=== PATIENT | male | born 1960 | race Caucasian/White ===

== ENCOUNTER → 2018-06-12 | Outpatient (CLI) | payer SELFPAY | LOC: CARD 09:51 | PROVIDERS: ATTEND Family Medicine | DX: I08.1 Rheumatic disorders of both mitral and tricuspid valves (principal); I50.9 Heart failure, unspecified | CPT/HCPCS: 93306 ==

== ENCOUNTER → 2018-07-20 | Outpatient (CLI) | payer SELFPAY ==
[~2018-07-20] MED LIST: REGADENOSON 0.4 MG/5 ML SYR (LEXISCAN) IV ONE
[2018-07-20] MEDS: CATHETER FLUSH 10 ML SYR IV PRN ×2 (07:38→09:38)
[2018-07-20 09:36] VITALS: BP 137/97
--- NOTE | 2018-07-20 12:29 | STRESS TEST ---
DATE OF SERVICE: 07/20/2018 LEXISCAN MYOVIEW STRESS TEST REPORT Baseline heart rate is 103. Baseline blood pressure is 137/97. Baseline EKG is sinus rhythm with no ischemic changes. In summary, the patient was injected with 10.0 mCi of technetium-99 Myoview and the resting images were obtained. Then, the patient received 0.4 mg of Lexiscan followed by 29.6 mCi of technetium-99 Myoview. Throughout the test, there were no EKG changes. The resting and stress images were reviewed and compared in the short axis, horizontal long axis, and vertical long axis views. Review of the images showed diaphragmatic attenuation with fixed defect involving the whole inferior wall. SSS is 7, SDS 1, TID value 0.99. On the gated images, the left ventricle appeared to be dilated with severe diffuse left ventricular hypokinesia, calculated ejection fraction 22%. CONCLUSION: 1. The patient tolerated Lexiscan well. 2. Fixed defect involving the whole inferior wall. 3. Dilated left ventricle with diffuse left ventricular hypokinesia, calculated ejection fraction 22%. Job ID: [id number] DocumentID: [id number] Dictated Date: 07/20/2018 12:18:36 Pickling Grader Date: 07/20/2018 12:28:38 Dictated By: JO ANN ADAMS MD
== END ==
LOC: CARD 07:19
PROVIDERS: ATTEND Internal Medicine Cardiovascular Disease
DX: I50.9 Heart failure, unspecified (principal)
CPT/HCPCS: 78452; 93017

== ENCOUNTER 2018-08-05 06:47 | Day surgery (SDC) | payer OTHER ==
[2018-08-05] VITALS (11 sets, daily range): BP systolic 110–137; BP diastolic 70–99
[~2018-08-05] VITALS: Ht 182.9 cm; Wt 72.6 kg
--- OUTSIDE RECORDS SUMMARY | 2018-08-05 06:52 | XMS REPORT ---
Author Author SANDY CHAVEZ Organization [facility] Address [address] [place] [address] Care Team Providers Care Concrete Grinder Operator Name Role Phone SANDY CHAVEZ Unavailable PROBLEMS Type Condition ICD9-CM Code [id number] Code Onset Dates Condition Status SNOMED Code Problem Congestive heart failure, unspecified HF chronicity, unspecified heart failure type I50.9 Active 20601857 Problem Mixed hyperlipidemia E78.2 Active 586605007 Problem Coronary artery disease involving nisqually coronary artery of nisqually heart without angina pectoris I25.10 Active 1501023313104 Problem Other emphysema J43.8 Active 20626216 Problem Essential hypertension I10 Active 88172327 ALLERGIES No Information ENCOUNTERS Encounter Location Date Diagnosis [facility] [id number] [place] [address] 30616- 3412 May, Congestive heart failure, unspecified HF chronicity, unspecified heart failure type I50.9 ; Fatigue, unspecified type R53.83 ; Mixed hyperlipidemia E78.2 and Elevated LFTs R94.5 [place] [address] [place] [address] 04458- 6493 February, Colon cancer screening Z12.11 [place] [id number] [place] [address] 65862- 4003 February, Colon cancer screening Z12.11 [place] [id number] [place] [address] 73235- 4101 February, Essential hypertension I10 ; Bilateral impacted cerumen H61.23 ; Coronary artery disease involving [place]qu[place] coronary artery of nisqually heart without angina pectoris I25.10 ; Mixed hyperlipidemia E78.2 and Screening for diabetes mellitus Z13.1 [place] [id number] [place] [address] 28341- 9362 Jul, [facility] [address] [address] 3054 Jul, [facility] [id number] [place] [address] 22191- 6272 Jul, Fatigue, unspecified type R53.83 ; Other emphysema J43.8 ; Essential hypertension I10 and Coronary artery disease involving n[place]qu[place] coronary artery of nisqually heart without angina pectoris I25.10 [facility] [id number] [place] [address] 02770- 8201 14 Jan, 2015 [facility] [id number] [place] [address] 02409- 1999 Jan, [facility] [id number] [place] [address] 20298- 4124 February, [facility] [id number] [place] [address] 71922- 6931 Dec, [facility] [id number] [place] [address] 56736- 7976 Nov, [facility] [id number] [place] [address] 12434- 3252 Sep, [facility] [id number] [place] [address] 87924- 2312 Oct, [facility] [address] [place] [address] 78083- 0383 Sep, IMMUNIZATIONS No Known Immunizations SOCIAL HISTORY Never Assessed REASON FOR VISIT lab results PLAN OF CARE VITAL SIGNS MEDICATIONS No Known Medications RESULTS No Results PROCEDURES No Known procedures INSTRUCTIONS MEDICATIONS ADMINISTERED No Known Medications MEDICAL (GENERAL) HISTORY Type Description Date Medical History emphysema Medical History htn Medical History degenerative changes to back Medical History arthritis Medical History COPD Medical History [place] - 2015 Hospitalization History COPD 2015 Hospitalization History COPD, CHF, Liver Enzymes 2018
--- OUTSIDE RECORDS SUMMARY | 2018-08-05 06:52 | XMS REPORT ---
Author Author SANDY CHAVEZ Organization [employer] Address Unknown Phone Unavailable Care Team Providers Care Optomechanical Technician Name Role Phone SANDY CHAVEZ CP Unavailable Allergies No Known Allergies Problems Problem Type Condition Code Onset Dates Condition Status Problem Essential hypertension I10 Active Problem Coronary artery disease involving [place] coronary artery of [place] heart without angina pectoris I25.10 Active Problem Other emphysema J43.8 Active Medications Medication Code System Code Instructions Start Date End Date Status Dosage Lisinopril [facility] [address]-73 10 MG Orally Aug 07, 2016 as directed Results No Known Results Summary Purpose [employer] Submission
--- OUTSIDE RECORDS SUMMARY | 2018-08-05 06:52 | XMS REPORT ---
Author Author SANDY CHAVEZ Organization [facility] Address [address] [place] [address] Care Team Providers Care Construction Technology Instructor Name Role Phone SANDY CHAVEZ Unavailable PROBLEMS Type Condition ICD9-CM Code [id number] Code Onset Dates Condition Status SNOMED Code Problem Congestive heart failure, unspecified HF chronicity, unspecified heart failure type I50.9 Active 00744038 Problem Mixed hyperlipidemia E78.2 Active 892089206 Problem Coronary artery disease involving inupiat coronary artery of inupiat heart without angina pectoris I25.10 Active 7822773452067 Problem Other emphysema J43.8 Active 26541413 Problem Essential hypertension I10 Active 14173247 ALLERGIES No Known Allergies ENCOUNTERS Encounter Location Date Diagnosis [place] [address] [place] [address] 78046- 4490 May, [place] [id number] [place] [address] 23630- 4004 May, Congestive heart failure, unspecified HF chronicity, unspecified heart failure type I50.9 ; Fatigue, unspecified type R53.83 ; Mixed hyperlipidemia E78.2 and Elevated LFTs R94.5 [place] [address] [place] [address] 36443- 7033 February, Colon cancer screening Z12.11 [place] [address] [place] [address] 21755- 8227 February, Colon cancer screening Z12.11 [place] [id number] [place] [address] 15839- 2905 February, Essential hypertension I10 ; Bilateral impacted cerumen H61.23 ; Coronary artery disease involving inupiat coronary artery of inupiat heart without angina pectoris I25.10 ; Mixed hyperlipidemia E78.2 and Screening for diabetes mellitus Z13.1 [place] [address], [place] [address] 8123 Jul, [place] [id number] [place] [address] 028637- 1445 Jul, [place] [id number] [place] [address] 05595- 2791 Jul, Fatigue, unspecified type R53.83 ; Other emphysema J43.8 ; Essential hypertension I10 and Coronary artery disease involving inupiat coronary artery of inupiat heart without angina pectoris I25.10 [place] [id number] [place] [address] 41227- 3809 14 Jan, 2015 [place] [id number] [place] [address] 80572- 8844 Jan, [place] [id number] [place] [address] 16865- 5368 February, [place] [id number] [place] [address] 53736- 3787 Dec, [place] [id number] [place] [address] 673865- 2951 Nov, [place] [id number] [place] [address] 939683- 0506 Sep, [place] [id number] [place] [address] 71208- 5026 Oct, [place] [id number] [place] [address] 19678- 9115 Sep, IMMUNIZATIONS No Known Immunizations SOCIAL HISTORY Never Assessed REASON FOR VISIT BP high - pt stopped taking 10mg Lisinopril once daily approx. 1 year ago, he states it gave him diarrhea. Pt states he drinks no more than 1 cup of water a day and consumes two liters of soda per day. Pt reports never having monitored his sodium intake. Pt has access to nebulizer and would like to be prescribed medication for regular breathing treatments. [facility]iki PLAN OF CARE Activity Details Follow Up 3 Months with Carly HTN/COPD Reason: VITAL SIGNS Height 72 in 2018-03-11 Weight 173 lbs 2018-03-11 Heart Rate 92 bpm 2018-03-11 Respiratory Rate 16 2018-03-11 BMI 23.46 kg/m2 2018-03-11 Blood pressure systolic 144 mmHg 2018-03-11 Blood pressure diastolic 100 mmHg 2018-03-11 MEDICATIONS Medication Instructions Dosage Frequency Start Date End Date Duration Status DayQuil Multi-Symptom Active Tylenol Active Ipratropium-Albuterol 0.5-2.5 (3) MG/3ML Inhalation every 6 hrs 3 ml 6h February, Active RESULTS No Results PROCEDURES Procedure Date Ordered Result Body Site COMPREHEN METABOLIC PANEL March 11, 2018 LIPID PANEL March 11, 2018 Hemoglobin Test Send Out 0 dollar March 11, 2018 VENIPUNCT, ROUTINE* March 11, 2018 MANUAL CELL COUNT, EACH March 11, 2018 MICROALBUMIN, QUANTITATIVE March 11, 2018 ASSAY OF URINE CREATININE March 11, 2018 INSTRUCTIONS MEDICATIONS ADMINISTERED No Known Medications MEDICAL (GENERAL) HISTORY Type Description Date Medical History emphysema Medical History htn Medical History degenerative changes to back Medical History arthritis Medical History COPD Medical History [place] - 2014 Hospitalization History COPD 2014 Hospitalization History COPD, CHF, Liver Enzymes 2017
--- OUTSIDE RECORDS SUMMARY | 2018-08-05 06:52 | XMS REPORT ---
Author Author SANDY CHAVEZ Organization [facility] Address [address] [place] [address] Care Team Providers Care Truckload Checker Name Role Phone SANDY CHAVEZ Unavailable PROBLEMS Type Condition ICD9-CM Code [id number] Code Onset Dates Condition Status SNOMED Code Problem Mixed hyperlipidemia E78.2 Active 523162792 Problem Other emphysema J43.8 Active 94957373 Problem Chronic systolic CHF (congestive heart failure) I50.22 Active 921437840 Problem Essential hypertension I10 Active 42293577 Problem Coronary artery disease involving [place] coronary artery of [place]kw[place] heart without angina pectoris I25.10 Active 5155562333597 ALLERGIES No Known Allergies ENCOUNTERS Encounter Location Date Diagnosis [place] [id number] [place] [address] 27014- 5253 Jul, [place] [id number] [place] [address] 52406- 3819 Jun, [place] [id number] [place] [address] 00238- 6378 Jun, [place] [id number] [place] [address] 43202- 3192 May, [place] [id number] [place] [address] 60883- 8271 May, Congestive heart failure, unspecified HF chronicity, unspecified heart failure type I50.9 ; Fatigue, unspecified type R53.83 ; Mixed hyperlipidemia E78.2 and Elevated LFTs R94.5 [place] [id number] [place] [address] 44774- 1719 February, Colon cancer screening Z12.11 [place] [address] 89366- 0403 February, Colon cancer screening Z12.11 [facility] [address], [place] [address]- 2423 16 Feb, 2018 Essential hypertension I10 ; Bilateral impacted cerumen H61.23 ; Coronary artery disease involving [place] coronary artery of [place] heart without angina pectoris I25.10 ; Mixed hyperlipidemia E78.2 and Screening for diabetes mellitus Z13.1 [place] [id number] [place] [address] 05155- 4427 Jul, [facility] [id number] [place] [address] 15328- 3680 Jul, [place] [id number] [place] [address] 71829- 9392 Jul, Fatigue, unspecified type R53.83 ; Other emphysema J43.8 ; Essential hypertension I10 and Coronary artery disease involving [place] coronary artery of [place]kw[place] heart without angina pectoris I25.10 [place] [id number] [place] [address] 11994- 9856 14 Jan, 2015 [place] [address], [place] [address]- 9576 Jan, [place] [id number] [place] [address] 15391- 8324 February, [place] [address], [place] [address]- 1221 Dec, [place] [id number] [place] [address] 07029- 2943 Nov, [facility] [address] 3805 Sep, [place] [id number] [place] [address] 676426- 6386 Oct, [facility] [address] [address]- 6447 Sep, IMMUNIZATIONS No Known Immunizations SOCIAL HISTORY Never Assessed REASON FOR VISIT Hospital f/u Jaime. , Pt has orders from Jaime for blood to be drawn and EKG.- [facility] PLAN OF CARE Activity Details Follow Up 2 Months with Carly kwong Echo/lab results Reason: VITAL SIGNS Height 72 in 2018-06-09 Weight 162.7 lbs 2018-06-09 Temperature 98 degrees Fahrenheit 2018-06-09 Heart Rate 92 bpm 2018-06-09 Respiratory Rate 20 2018-06-09 Oximetry 98 % 2018-06-09 BMI 22.06 kg/m2 2018-06-09 Blood pressure systolic 105 mmHg 2018-06-09 Blood pressure diastolic 58 mmHg 2018-06-09 MEDICATIONS Medication Instructions Dosage Frequency Start Date End Date Duration Status Potassium Chloride 10 MEQ Orally Once a day 1 tab 24h Active Ventolin HFA 108 (90 Base) MCG/ACT Inhalation every 6 hrs 2 puffs as needed 6h Active Proventil (2.5 MG/3ML) 0.083% Inhalation every 6 hrs 6h Active Lopressor 25 Orally Twice a day 12h Active Lasix 20 MG Orally Once a day 1 tablet 24h Active Ipratropium-Albuterol 0.5-2.5 (3) MG/3ML Inhalation every 6 hrs 3 ml as needed 6h May, Active RESULTS No Results PROCEDURES Procedure Date Ordered Result Body Site LIPID PANEL Jun 09, 2018 COMPLETE CBC W/AUTO DIFF WBC Jun 09, 2018 NATRIURETIC PEPTIDE Jun 09, 2018 COMPREHEN METABOLIC PANEL Jun 09, 2018 ASSAY THYROID STIM HORMONE Jun 09, 2018 ACUTE HEPATITIS PANEL Jun 09, 2018 INSTRUCTIONS MEDICATIONS ADMINISTERED No Known Medications MEDICAL (GENERAL) HISTORY Type Description Date Medical History emphysema Medical History htn Medical History degenerative changes to back Medical History arthritis Medical History COPD Medical History [place] - 2014 Hospitalization History COPD 2014 Hospitalization History COPD, CHF, Liver Enzymes 2017
--- OUTSIDE RECORDS SUMMARY | 2018-08-05 06:52 | XMS REPORT ---
Author Author SANDY CHAVEZ Organization [facility] Address [address] [place] [address] Care Team Providers Care Technical Services Rep Name Role Phone SANDY CHAVEZ Unavailable PROBLEMS Type Condition ICD9-CM Code QTD54-ZI Code Onset Dates Condition Status SNOMED Code Problem Mixed hyperlipidemia E78.2 Active 850551998 Problem Other emphysema J43.8 Active 38230980 Problem Chronic systolic CHF (congestive heart failure) I50.22 Active 056929329 Problem Essential hypertension I10 Active 45747152 Problem Coronary artery disease involving [place] coronary artery of chickahominy indian tribe heart without angina pectoris I25.10 Active 3603953428473 ALLERGIES No Information ENCOUNTERS Encounter Location Date Diagnosis [place] [id number] [place] [address] 50622- 5606 Jul, [place] [id number] [place] [address] 21434- 4050 Jun, [place] [id number] [place] [address] 39448- 0063 Jun, Congestive heart failure, unspecified HF chronicity, unspecified heart failure type I50.9 ; Essential hypertension I10 ; Dyspnea, unspecified type R06.00 and History of tobacco use Z87.891 [facility] [id number] [place] [address] 99335- 2289 Jun, [place] [id number] [place] [address] 27719- 0943 16 May, 2018 [place] [address] 64179- 7278 14 May, 2018 Congestive heart failure, unspecified HF chronicity, unspecified heart failure type I50.9 ; Fatigue, unspecified type R53.83 ; Mixed hyperlipidemia E78.2 and Elevated LFTs R94.5 [facility] [address] [place] [address] 81797- 9263 31 Feb, 2018 Colon cancer screening Z12.11 [facility] [id number] [place] [address] 49884- 8009 February, Colon cancer screening Z12.11 [facility] [id number] [place] [address] 87286- 1059 16 Feb, 2018 Essential hypertension I10 ; Bilateral impacted cerumen H61.23 ; Coronary artery disease involving [place]om[place] indian tribe coronary artery of chick[place]ominy indian tribe heart without angina pectoris I25.10 ; Mixed hyperlipidemia E78.2 and Screening for diabetes mellitus Z13.1 [place] [id number] [place] [address] 06126- 6916 Jul, [place] [id number] [place] [address] 99416- 8169 Jul, [place] [id number] [place] [address] 96483- 0682 Jul, Fatigue, unspecified type R53.83 ; Other emphysema J43.8 ; Essential hypertension I10 and Coronary artery disease involving [place] indian tribe coronary artery of chick[place]ominy indian tribe heart without angina pectoris I25.10 [place] [address] [place] [address] 05883- 9145 Jan, [place] [address] [place] [address] 71745- 9454 Jan, [facility] [id number] [place] [address] 50664- 1436 February, [facility] [id number] [place] [address] 70414- 8507 Dec, [facility] [id number] [place] [address] 71609- 9552 Nov, [facility] [id number] [place] [address] 01113- 3089 Sep, [facility] [address] [facility] [id number] [address]- 9408 Oct, [facility] [address] [facility] [id number] [place] [address]- 8707 Sep, IMMUNIZATIONS No Known Immunizations SOCIAL HISTORY Never Assessed REASON FOR VISIT Medication refill request PLAN OF CARE VITAL SIGNS MEDICATIONS Unknown Medications RESULTS No Results PROCEDURES No Known procedures INSTRUCTIONS MEDICATIONS ADMINISTERED No Known Medications MEDICAL (GENERAL) HISTORY Type Description Date Medical History emphysema Medical History htn Medical History degenerative changes to back Medical History arthritis Medical History COPD Medical History [place] - 2014 Hospitalization History COPD 2014 Hospitalization History COPD, CHF, Liver Enzymes 2018
--- OUTSIDE RECORDS SUMMARY | 2018-08-05 06:52 | XMS REPORT ---
Author Author SANDY CHAVEZ Organization [facility] Address [address] [place] [address] Care Team Providers Care Poultry Grader Name Role Phone SANDY CHAVEZ Unavailable PROBLEMS Type Condition ICD9-CM Code [id number] Code Onset Dates Condition Status SNOMED Code Problem Mixed hyperlipidemia E78.2 Active 557333250 Problem Other emphysema J43.8 Active 02435507 Problem Chronic systolic CHF (congestive heart failure) I50.22 Active 236454547 Problem Essential hypertension I10 Active 68635907 Problem Coronary artery disease involving [place] coronary artery of [place] heart without angina pectoris I25.10 Active 2761341993042 ALLERGIES No Information ENCOUNTERS Encounter Location Date Diagnosis [place] [id number] [place] [address] 79339- 7795 Jul, [place] [id number] [place] [address] 57986- 7704 Jun, [place] [id number] [place] [address] 91064- 3732 Jun, [place] [id number] [place] [address] 90570- 9385 May, [place] [address] 24139- 6637 May, Congestive heart failure, unspecified HF chronicity, unspecified heart failure type I50.9 ; Fatigue, unspecified type R53.83 ; Mixed hyperlipidemia E78.2 and Elevated LFTs R94.5 [place] [id number] [place] [address] 12781- 8601 February, Colon cancer screening Z12.11 [place] [address] 37242- 3456 February, Colon cancer screening Z12.11 [place] [address], [place] [address]- 4889 16 Feb, 2018 Essential hypertension I10 ; Bilateral impacted cerumen H61.23 ; Coronary artery disease involving [place] coronary artery of [place] heart without angina pectoris I25.10 ; Mixed hyperlipidemia E78.2 and Screening for diabetes mellitus Z13.1 [place] [id number] [place] [address] 03341- 6321 Jul, [place] [id number] [place] [address] 23078- 8694 Jul, [place] [id number] [place] [address] 33938- 5620 Jul, Fatigue, unspecified type R53.83 ; Other emphysema J43.8 ; Essential hypertension I10 and Coronary artery disease involving [place] coronary artery of [place] heart without angina pectoris I25.10 [place] [id number] [place] [address] 31560- 1004 Jan, [place] [id number] [address]- 9616 Jan, [place] [id number] [place] [address] 43036- 6097 February, [place] [id number] [address]- 3038 Dec, [place] [id number] [place] [address] 95525- 5685 Nov, [place] [address] [place] [address]- 0484 Sep, [place] [id number] [place] [address] 51366- 1898 Oct, [place] [address] [place] [address]- 2462 Sep, IMMUNIZATIONS No Known Immunizations SOCIAL HISTORY Never Assessed REASON FOR VISIT Requests return call PLAN OF CARE VITAL SIGNS MEDICATIONS Unknown Medications RESULTS No Results PROCEDURES No Known procedures INSTRUCTIONS MEDICATIONS ADMINISTERED No Known Medications MEDICAL (GENERAL) HISTORY Type Description Date Medical History emphysema Medical History htn Medical History degenerative changes to back Medical History arthritis Medical History COPD Medical History [place] - 2014 Hospitalization History COPD 2014 Hospitalization History COPD, CHF, Liver Enzymes 2018
--- OUTSIDE RECORDS SUMMARY | 2018-08-05 06:52 | XMS REPORT ---
Author Author SANDY CHAVEZ Organization [facility] Address [address] [place] [address] Care Team Providers Care Senior Mechanical Estimator Name Role Phone SANDY CHAVEZ Unavailable PROBLEMS Type Condition ICD9-CM Code [id number] Code Onset Dates Condition Status SNOMED Code Problem Congestive heart failure, unspecified HF chronicity, unspecified heart failure type I50.9 Active 25975466 Problem Mixed hyperlipidemia E78.2 Active 585254600 Problem Coronary artery disease involving anvik coronary artery of anvik heart without angina pectoris I25.10 Active 4265419636255 Problem Other emphysema J43.8 Active 73930801 Problem Essential hypertension I10 Active 65001801 ALLERGIES No Information ENCOUNTERS Encounter Location Date Diagnosis [place] [id number] [place] [address] 56168- 8655 May, [place] [address] [place] [id number] [place] [address] 58064- 1163 May, Congestive heart failure, unspecified HF chronicity, unspecified heart failure type I50.9 ; Fatigue, unspecified type R53.83 ; Mixed hyperlipidemia E78.2 and Elevated LFTs R94.5 [place] [address] [id number] [place] [address] 65589- 4956 February, Colon cancer screening Z12.11 [place] [address] [id number] [place] [address] 60125- 7545 February, Colon cancer screening Z12.11 [place] [address] [id number] [place] [address] 12480- 3267 February, Essential hypertension I10 ; Bilateral impacted cerumen H61.23 ; Coronary artery disease involving anvik coronary artery of anvik heart without angina pectoris I25.10 ; Mixed hyperlipidemia E78.2 and Screening for diabetes mellitus Z13.1 [place] [address] [address] Jul, [place] [address] [place] [id number] [place] [address] 60115- 6535 Jul, [facility] [address] [address] [id number] [place] [address] 69518- 0704 11 Jul, 2016 Fatigue, unspecified type R53.83 ; Other emphysema J43.8 ; Essential hypertension I10 and Coronary artery disease involving anvik coronary artery of anvik heart without angina pectoris I25.10 [place] [address] [id number] [place] [address] 93827- 0059 14 Jan, 2015 [place] [address] [id number] [place] [address] 47614- 0232 Jan, [place] [address] [place] [id number] [place] [address] 89476- 4597 February, [place] [address] [address] [id number] [place] [address] 57026- 4077 Dec, [place] [address] [id number] [place] [address] 80194- 4249 Nov, [place] [address] [place] [id number] [place] [address] 42572- 3988 Sep, [place] [address] [address] 9212 Oct, [place] [address] [place] [id number] [place] [address] 80176- 0436 Sep, IMMUNIZATIONS No Known Immunizations SOCIAL HISTORY Never Assessed REASON FOR VISIT Lab (walk-in)--[facility] PLAN OF CARE VITAL SIGNS MEDICATIONS Unknown Medications RESULTS Name Result Date Reference Range HEMOCCULT (IN HOUSE) 2018-03-26 RESULTS Negative Control + Lot # [id number] Exp date 01/2019 HEMOCCULT (IN HOUSE)-Additional* 2018-03-26 RESULTS Negative Control + Lot # [id number] Exp Date 01/2019 PROCEDURES Procedure Date Ordered Result Body Site TEST FOR BLOOD, FECES March 26, 2018 INSTRUCTIONS MEDICATIONS ADMINISTERED No Known Medications MEDICAL (GENERAL) HISTORY Type Description Date Medical History emphysema Medical History htn Medical History degenerative changes to back Medical History arthritis Medical History COPD Medical History [place] - 2014 Hospitalization History COPD 2014 Hospitalization History COPD, CHF, Liver Enzymes 2018
--- OUTSIDE RECORDS SUMMARY | 2018-08-05 06:52 | XMS REPORT ---
Author Author SANDY CHAVEZ Organization [facility] Address [address] [place] [address] Care Team Providers Care Capsule Inspector Name Role Phone SANDY CHAVEZ Unavailable PROBLEMS Type Condition ICD9-CM Code [id number] Code Onset Dates Condition Status SNOMED Code Problem Mixed hyperlipidemia E78.2 Active 218376476 Problem Other emphysema J43.8 Active 91431064 Problem Chronic systolic CHF (congestive heart failure) I50.22 Active 899890978 Problem Essential hypertension I10 Active 79652656 Problem Coronary artery disease involving hop[place] coronary artery of hop[place] heart without angina pectoris I25.10 Active [id number] ALLERGIES No Information ENCOUNTERS Encounter Location Date Diagnosis [place] [address] [place] [id number] [place] [address] 15280- 0891 Jul, [place] [address] [place] [id number] [place] [address] 58183- 8910 Jun, [place] [address] [place] [id number] [place] [address] 02304- 8128 Jun, Congestive heart failure, unspecified HF chronicity, unspecified heart failure type I50.9 ; Essential hypertension I10 ; Dyspnea, unspecified type R06.00 and History of tobacco use Z87.891 [facility] [address] [address] [id number] [place] [address] 58455- 7012 Jun, [place] [address] [place] [id number] [place] [address] 45075- 0741 16 May, 2018 [place] [address] 8[address]64- 0708 14 May, 2018 Congestive heart failure, unspecified HF chronicity, unspecified heart failure type I50.9 ; Fatigue, unspecified type R53.83 ; Mixed hyperlipidemia E78.2 and Elevated LFTs R94.5 [facility] [address] [place] [address] 26904- 8959 31 Feb, 2018 Colon cancer screening Z12.11 [facility] [address] [place] [id number] [place] [address] 85324- 2188 February, Colon cancer screening Z12.11 [facility] [address] [place] [id number] [place] [address] 33738- 2507 16 Feb, 2018 Essential hypertension I10 ; Bilateral impacted cerumen H61.23 ; Coronary artery disease involving [place] coronary artery of hop[place] heart without angina pectoris I25.10 ; Mixed hyperlipidemia E78.2 and Screening for diabetes mellitus Z13.1 [place] [address] [id number] [place] [address] 76909- 6613 Jul, [place] [address] [place] [id number] [place] [address] 40124- 0101 Jul, [place] [address] [place] [id number] [place] [address] 57927- 5994 Jul, Fatigue, unspecified type R53.83 ; Other emphysema J43.8 ; Essential hypertension I10 and Coronary artery disease involving [place] coronary artery of hop[place] heart without angina pectoris I25.10 [place] [address] [place] [address] 77964- 3654 Jan, [place] [address] [place] [address] 11829- 8433 Jan, [facility] [address] [place] [id number] [place] [address] 72079- 9476 February, [facility] [address] [place] [id number] [place] [address] 03788- 1937 Dec, [facility] [address] [place] [address] [id number] [place] [address] 18659- 1596 Nov, [facility] [address] [address] [id number] [place] [address] 56666- 4544 Sep, [facility] [address] [facility] [id number] [place] [address] 4020 Oct, [facility] [address] [facility] [id number] [place] [address] 6[address] Sep, IMMUNIZATIONS No Known Immunizations SOCIAL HISTORY Never Assessed REASON FOR VISIT Repository Medication PLAN OF CARE VITAL SIGNS MEDICATIONS Medication Instructions Dosage Frequency Start Date End Date Duration Status Lisinopril 10 mg Orally Once a day 2 tablets 24h Jun, 90 days Active Lasix 20 mg Orally Once a day 1 tablet 24h 30 days Active Potassium Chloride 10 meq Orally Once a day 1 tab 24h 90 days Active RESULTS No Results PROCEDURES No Known procedures INSTRUCTIONS MEDICATIONS ADMINISTERED No Known Medications MEDICAL (GENERAL) HISTORY Type Description Date Medical History emphysema Medical History htn Medical History degenerative changes to back Medical History arthritis Medical History COPD Medical History [place] - 2014 Hospitalization History COPD 2014 Hospitalization History COPD, CHF, Liver Enzymes 2018
--- OUTSIDE RECORDS SUMMARY | 2018-08-05 06:53 | XMS REPORT ---
Author Author SANDY CHAVEZ Organization [employer] Address Unknown Phone Unavailable Care Team Providers Care Auto Appraiser Name Role Phone SANDY CHAVEZ CP Unavailable Allergies No Known Allergies Problems Problem Type Condition Code Onset Dates Condition Status Problem Essential hypertension I10 Active Problem Coronary artery disease involving t[place] coronary artery of tling[place] & [place] heart without angina pectoris I25.10 Active Problem Other emphysema J43.8 Active Medications No Known Medications Results No Known Results Summary Purpose [employer] Submission
--- OUTSIDE RECORDS SUMMARY | 2018-08-05 06:53 | XMS REPORT ---
Author Author SANDY CHAVEZ Organization [employer] Address Unknown Phone Unavailable Care Team Providers Care International Exchange Coordinator Name Role Phone SANDY CHAVEZ CP Unavailable Allergies, Adverse Reactions, Alerts Substance Reaction Event Type N.K.D.A. Info Not Available Non Drug Allergy Problems Problem Type Condition Code Onset Dates Condition Status Problem Essential hypertension I10 Active Problem Coronary artery disease involving [place] coronary artery of chick[place]om[place]ian [place] heart without angina pectoris I25.10 Active Problem Other emphysema J43.8 Active Assessment Essential hypertension I10 Active Assessment Coronary artery disease involving [place] coronary artery of chick[place]om[place] tribe heart without angina pectoris I25.10 Active Assessment Fatigue, unspecified type R53.83 Active Assessment Other emphysema J43.8 Active Medications No Known Medications Procedures Procedure Coding System Code Date Office Visit, New Pt., Level 3 CPT-4 79720 Aug 06, 2016 Vital Signs Date/Time: Aug 06, 2016 Cardiac Monitoring Heart Rate 96 bpm Weight 161 lbs Height 72 in BMI 21.83 Index Blood Pressure Diastolic 90 mmHg Blood Pressure Systolic 120 mmHg Results No Known Results Summary Purpose [employer] Submission
[2018-08-05] MEDS ORDERED: NS IV 1000 ML 1,000 ML ONE (07:22)
[2018-08-05] MEDS ORDERED: NS IV 1000 ML 1,000 ML IV SCH ×2 (07:31→09:37)
[2018-08-05 07:50] LABS: HEMOGLOBIN 12.8 G/DL (13.3-17.7); MEAN PLATELET VOLUME 10.1 FL (7.4-10.4); RED BLOOD COUNT 5.04 10^6/uL (4.35-5.85); RED CELL DISTRIBUTION WIDTH 18.7 % (10.0-14.5); WHITE BLOOD COUNT 10.7 10^3/uL (4.3-11.0)
[2018-08-05] MEDS ORDERED: LIDOCAINE 1% INJ 20 ML 20 ML VIAL ONE (08:01)
[2018-08-05] MEDS ORDERED: HEParin (CATH LAB) 2,000 ML IV ONE (08:01)
--- NOTE | 2018-08-05 08:05 | Diagnostic Imaging Report ---
INDICATION: CHF and hypertension Frontal chest obtained at 7:49 a.m. Heart is borderline enlarged. Mediastinal silhouette is unremarkable. The lungs are clear. There is no pneumothorax or pleural fluid. IMPRESSION: Mild cardiomegaly with no acute process visualized in the chest. There is no sign of edema or infiltrate or pleural fluid. Dictated by: Dictated on workstation # [id number]
[2018-08-05 08:09] LABS: ALBUMIN 4.2 GM/DL (3.2-4.5); BILIRUBIN,TOTAL 0.4 MG/DL (0.1-1.0); CALCIUM 9.4 MG/DL (8.5-10.1); CREATININE SERUM 1.24 MG/DL (0.60-1.30); POTASSIUM 4.4 MMOL/L (3.6-5.0); TOTAL PROTEIN 7.6 GM/DL (6.4-8.2)
[2018-08-05] MEDS ORDERED: POTA10CA43 PO (08:14)
[2018-08-05] MEDS ORDERED: ALBU2.5V4 IH (08:14)
[2018-08-05] MEDS ORDERED: METO-387 PO (08:14)
[2018-08-05] MEDS ORDERED: FURO-125 PO (08:14)
[2018-08-05] MEDS ORDERED: LOSA100T8 PO (08:14)
[2018-08-05 08:20] LABS: INR 0.9 (0.8-1.4); PROTHROMBIN TIME PATIENT 12.5 SEC (12.2-14.7)
[2018-08-05] MEDS ORDERED: MIDAZOLAM 5 MG/5 ML (VERSED) VIAL ONE (08:38)
[2018-08-05] MEDS ORDERED: fentaNYL INJECTION 100 MCG/2 ML AMP ONE (08:38)
[2018-08-05] MEDS ORDERED: HEParin 1000 UNIT/ML (10ML VIAL) FOR BOLUS ONE (08:38)
--- NOTE | 2018-08-05 09:37 | Cardiac Procedure Note-CS/ASA ---
Pre-Procedure Note Pre-Op Procedure Note H&P Reviewed The H&P was reviewed, patient examined and no changes noted. Date H&P Reviewed: Aug 05, 2018 Time H&P Reviewed: 09:00 Conscious Sedation Pre-Proced Time 09:00 ASA Score 3 For ASA 3 and 4: Consider anesthesia and medical clearance. Also, for patients with a history of failed moderate sedation consider anesthesia. Airway Lungs Heart ASA score ASA 1: a normal healthy patient ASA 2: a patient with a mild systemic disease (mid diabetes, controlled hypertension, obesity x ASA 3: a patient with a severe systemic disease that limits activity (angina , COPD, prior Myocardial infarction) ASA 4: a patient with an incapacitating disease that is a constant threat to life (CHF, renal failure) ASA 5: a moribund patient not expected to survive 24 hrs. (ruptured aneurysm) ASA 6: a declared brain patient whose organs are being harvested. For emergent operations, add the letter E after the classification Mallampati Classification Grade 3 Sedation Plan Analgesia, Amnesia, Plan communicated to team members, Discussed options with patient/fam, Discussed risks with patient/fam The patient is an appropriate candidate to undergo the planned procedure, sedation, and anesthesia. The patient immediately re-assessed prior to indication. JO ANN ADAMS MD Aug 05, 2018 09:37
[2018-08-05] MEDS ORDERED: PATIENT MAY USE OWN MEDS, ALL PO SCH (09:45)
--- NOTE | 2018-08-05 09:46 | Cardiac Cath Report ---
Cardiac Cath Report Physician (s)/Supervisor Paint (s) Physician JO ANN ADAMS MD Pre-Procedure Diagnosis Pre-Procedure Diagnosis: coronary artery disease, congestive heart failure Post-Procedure Note Procedure Start Date: Aug 05, 2018 Name of Procedure: left heart catheterization Left ventriculogram Aortic arch angiogram Findings/Procedure Note PROCEDURE NOTE: After explaining the procedure to the patient, all pros and cons were explained , all questions were answered. The patient signed the consent and then he was placed on the cardiac catheterization laboratory. Groin was prepped SL fashion local anesthesia was used. Sheath placed in the right femoral artery. Barbara right and left catheter were used to access the coronary system. Pigtail was used to access the left ventricular cavity. Left ventriculogram was done Aortic arch angiogram was done At the end of the procedure the sheath was removed. Closure device was used FINDINGS: Hemodynamics LV 110/13, end-diastolic pressure of 13 Aorta 101/16 mean of 76 ANATOMY: Left Main has 60-70 percent distal stenosis Left Anterior Descending had 2 segment of moderate to severe stenosis at the midportion Left Circumflex has 2 segment of severe stenosis at the proximal and midportion Right Coronory Artery is totally occluded proximally getting filled by collaterals from the left side LV Gram is dilated with diffuse left ventricular hypokinesia estimated ejection fraction 20 percent Aorta evaluation showed normal aortic arch, no dissection or aneurysm, hypertensive changes, origin of the great neck vessels appeared normal CONCLUSION: 1. Severe multivessel coronary artery disease including severe distal left main , proximal and mid circumflex, mid LAD and total occlusion of the right coronary artery 2. Severe ischemic cardiomyopathy with ejection fraction 20 percent 3. Normal aortic arch and great neck vessels DISCUSSION AND RECOMMENDATION: Refer for CABG evaluation Estimated blood loss (mL): 10 ml Contrast Amount: 79 ml Total Radiation Dose: 410 mGy Post-Procedure Diagnosis Post-operative diagnosis: coronary artery disease Congestive heart failure, chronic left ventricular systolic dysfunction, ischemic cardiomyopathy Hypertension Hyperlipidemia JO ANN ADAMS MD Aug 05, 2018 09:46
[2018-08-05] MEDS ORDERED: ASPI-983 PO (10:01)
[2018-08-05] MEDS ORDERED: ATOR10TA PO (10:01)
--- NOTE | 2018-08-05 10:02 | Discharge Inst-Post CATH ---
Discharge Inst-CATH Post Cardiac Cath D/C Inst Follow Up/Plan Appointment with Dr. Gold Mccloud's office Appointment with Dr. Olvera's office in 2-4 weeks CARDIAC CATH DISCHARGE INSTRUCTIONS *Hold Metformin for 48 hours post heart cath. ACTIVITY * Go Home directly and rest. * Limit activity of the leg (or wrist if it was used) for 7 days including aerobics, swimming, jogging, bicycling, etc. * Restrict stair-climbing for 7 days if possible, if not, climb up with your non -cath leg, then bring together on the same step. * Avoid lifting, pushing, pulling or excessive movement of the affected extremity for 7 days. * Customary sexual activity may be resumed after 2 days-use caution not to use a position that strains or causes pain to the affected extremity. * No driving for 24 hours. * NO SMOKING. * Avoid straining for bowel movements for 7 days. * Gentle walking on level ground is allowed. * Returning to work will depend on the type of procedure and the results. Your doctor will discuss this with you. CALL YOUR DOCTOR FOR ANY OF THE FOLLOWING: *If bleeding from the puncture site occurs- Apply gentle pressure to site with clean cloth and call your doctor or EMS. * If a knot or lump forms under the skin, increases in size, or causes pain. * If bruising appears to be worsening or moving further down your leg instead of disappearing. * Temperature above 101 F. CARE OF YOUR GROIN INCISION; * Bruising or purple discoloration of the skin near the puncture site is common. * You may shower only, no bathtub bathing for 5 days. Be careful to avoid slipping as your leg may feel stiff. * If a closure device was used on your femoral artery, please see the attached guide regarding care of the device and your leg. * Leave the dressing on, until removed by office staff. CARE OF YOUR WRIST INCISION; * Bruising or purple discoloration of the skin near the puncture site is common. * You may shower. * DO NOT submerge wrist. * Leave dressing on, until removed by office staff.. JO ANN OLVERA MD Aug 05, 2018 10:02
== END 2018-08-05 14:45 | disposition home or self-care (01) ==
LOC: CATH 06:47 → SDC 10:04 → CATH 14:45
PROVIDERS: ATTEND Internal Medicine Cardiovascular Disease
DX: I25.10 Atherosclerotic heart disease of native coronary artery without angina pectoris (principal); I11.0 Hypertensive heart disease with heart failure; I50.21 Acute systolic (congestive) heart failure; I25.5 Ischemic cardiomyopathy; E78.5 Hyperlipidemia, unspecified; Z87.891 Personal history of nicotine dependence; Z79.899 Other long term (current) drug therapy
CPT/HCPCS: 36221; 36415; 71045; 80053; 80061; 85027; 85610; 85730; 87081; 93458

== ENCOUNTER 2018-12-01 22:09 | Emergency (ER) | payer MEDICAID ==
[~2018-12-01] VITALS: Ht 182.9 cm; Wt 77.1 kg
[~2018-12-01 22:09] MED LIST changes: +ALBU2.5V4 IH; +ASPI-983 PO; +ATOR10TA PO; +FURO-125 PO; +LOSA100T57 PO; +METO-387 PO; +POTA10CA43 PO; -REGADENOSON 0.4 MG/5 ML SYR (LEXISCAN) IV ONE
--- OUTSIDE RECORDS SUMMARY | 2018-12-01 22:13 | XMS REPORT ---
Author Author SANDY CHAVEZ Organization [facility] Address [address] [place] [address] Care Team Providers Care Client Experience Specialist Name Role Phone SANDY CHAVEZ Unavailable PROBLEMS Type Condition ICD9-CM Code ARY76-AL Code Onset Dates Condition Status SNOMED Code Problem Coronary artery disease of [place] artery of [place] heart with stable angina pectoris I25.118 Active 0720922735438 Problem Mixed hyperlipidemia E78.2 Active 683061543 Problem Coronary artery disease involving [place] coronary artery of [place] heart without angina pectoris I25.10 Active 6133302613309 Problem Chronic systolic CHF (congestive heart failure) I50.22 Active 191270323 Problem Other emphysema J43.8 Active 53893601 Problem Essential hypertension I10 Active 39018347 ALLERGIES No Known Allergies ENCOUNTERS Encounter Location Date Diagnosis [facility] [address] [place] [id number] [place] [address] 85243- 8687 Jul, Chronic systolic CHF (congestive heart failure) I50.22 ; Coronary artery disease of [place] artery of [place] heart with stable angina pectoris I25.118 ; Essential hypertension I10 ; Other emphysema J43.8 ; Trapezius muscle spasm M62.838 and Encounter for immunization Z23 [facility] [address] [place] [address] 74072- 5406 Jun, [facility] [address] [place] [address] [id number] [place] [address] 94763- 6400 Jun, Congestive heart failure, unspecified HF chronicity, unspecified heart failure type I50.9 ; Essential hypertension I10 ; Dyspnea, unspecified type R06.00 and History of tobacco use Z87.891 [place] [address] [place] [id number] [place] [address] 68803- 4442 Jun, [place] [address] [place] [id number] [place] [address] 13966- 1816 May, [place] [address], [place] [address]- 8673 May, Congestive heart failure, unspecified HF chronicity, unspecified heart failure type I50.9 ; Fatigue, unspecified type R53.83 ; Mixed hyperlipidemia E78.2 and Elevated LFTs R94.5 [place] [address] [place] [address] [id number] [place] [address] 97822- 1672 February, Colon cancer screening Z12.11 [place] [address] [place] [address] 19061- 8507 February, Colon cancer screening Z12.11 [place] [address] [place] [address] [id number] [place] [address] 41654- 9777 February, Essential hypertension I10 ; Bilateral impacted cerumen H61.23 ; Coronary artery disease involving [place] coronary artery of [place] heart without angina pectoris I25.10 ; Mixed hyperlipidemia E78.2 and Screening for diabetes mellitus Z13.1 [place] [address] [place] [address] 11458- 5465 Jul, [place] [address] [place] [address] [id number] [place] [address] 66151- 4101 Jul, [place] [address] [place] [address] 52542- 2173 Jul, Fatigue, unspecified type R53.83 ; Other emphysema J43.8 ; Essential hypertension I10 and Coronary artery disease involving [place] coronary artery of [place] heart without angina pectoris I25.10 [place] [address], [place] [address]- 8597 Jan, [place] [address] [place] [id number] [place] [address] 88072- 8606 Jan, [place] [address], [place] [address]- 9074 February, [place] [address] [place] [id number] [place] [address] 10787- 7506 Dec, [facility] [address] [facility] [id number] [address]- 8096 Nov, [facility] [address] [facility] [id number] [address] 2546 Sep, [facility] [address] [facility] [id number] [address]- 0396 Oct, [facility] [address] [facility] [id number] [address]- [address] Sep, IMMUNIZATIONS Vaccine Route Administration Date Status FLULAVAL QUAD 0.5ML (6 MO & UP) 2017 IM Intramuscular Aug 19, 2018 Administered SOCIAL HISTORY Never Assessed REASON FOR VISIT Blood Pressure fu -- jazmyne chowdhury PLAN OF CARE Activity Details Follow Up Will follow up after hospitalization Reason: VITAL SIGNS Height 72 in 2018-08-19 Weight 168.0 lbs 2018-08-19 Temperature 97.9 degrees Fahrenheit 2018-08-19 Heart Rate 80 bpm 2018-08-19 Respiratory Rate 22 2018-08-19 BMI 22.78 kg/m2 2018-08-19 Blood pressure systolic 136 mmHg 2018-08-19 Blood pressure diastolic 78 mmHg 2018-08-19 MEDICATIONS Medication Instructions Dosage Frequency Start Date End Date Duration Status Ipratropium-Albuterol 0.5-2.5 (3) MG/3ML Inhalation every 6 hrs 3 ml as needed 6h 14 May, 2018 Active ProAir HFA 108 (90 Base) MCG/ACT Inhalation every 6 hrs 2 puffs as needed 6h Jul, Active Albuterol Sulfate (2.5 MG/3ML) 0.083% Inhalation every 6 hours 3 ml as needed 6h 24 Jul, 2018 Active Lasix 20 mg Orally Once a day 1 tablet 24h 90 days Active Potassium Chloride 10 meq Orally Once a day 1 tab 24h 90 days Active Ventolin HFA 108 (90 Base) MCG/ACT Inhalation every 6 hrs 2 puffs as needed 6h Active Lopressor 25 Orally Twice a day 12h Not-Taking Lisinopril 10 mg Orally Once a day 2 tablets 24h 12 Jun, 2018 90 days Active RESULTS No Results PROCEDURES Procedure Date Ordered Result Body Site FLULAVAL QUAD 0.5ML (6 MO AND UP) 2017Aug 19, 2018 SINGLE IMMUNIZATION ADMIN Aug 19, 2018 INSTRUCTIONS MEDICATIONS ADMINISTERED No Known Medications MEDICAL (GENERAL) HISTORY Type Description Date Medical History emphysema Medical History htn Medical History degenerative changes to back Medical History arthritis Medical History COPD Medical History [place] - 2015 Surgical History No know Surgical history Hospitalization History COPD 2014 Hospitalization History COPD, CHF, Liver Enzymes 2018
--- OUTSIDE RECORDS SUMMARY | 2018-12-01 22:13 | XMS REPORT ---
Author Author SANDY CHAVEZ Organization [facility] Address [address] [place] [address] Care Team Providers Care Weather Strip Installer Name Role Phone SANDY CHAVEZ Unavailable PROBLEMS Type Condition ICD9-CM Code [id number] Code Onset Dates Condition Status SNOMED Code Problem Coronary artery disease of [place] artery of [place] heart with stable angina pectoris I25.118 Active 6970686762053 Problem Mixed hyperlipidemia E78.2 Active 177493650 Problem Coronary artery disease involving [place] coronary artery of [place] heart without angina pectoris I25.10 Active 3271826522419 Problem Chronic systolic CHF (congestive heart failure) I50.22 Active 644731987 Problem Other emphysema J43.8 Active 96986700 Problem Essential hypertension I10 Active 12535237 ALLERGIES No Information ENCOUNTERS Encounter Location Date Diagnosis [facility] [address] [address] Sep, [facility] [address] [address] Aug, Chronic systolic CHF (congestive heart failure) I50.22 [facility] [address] [place] [id number] [place] [address] Jul, Chronic systolic CHF (congestive heart failure) I50.22 ; Coronary artery disease of [place] artery of [place] heart with stable angina pectoris I25.118 ; Essential hypertension I10 ; Other emphysema J43.8 ; Trapezius muscle spasm M62.838 and Encounter for immunization Z23 [facility] [address] [address] Jun, [place] [address] [address] Jun, Congestive heart failure, unspecified HF chronicity, unspecified heart failure type I50.9 ; Essential hypertension I10 ; Dyspnea, unspecified type R06.00 and History of tobacco use Z87.891 [place] [address] [place] [address] Jun, [place] [address] [address] May, [place] [address] [place] [id number] [place] [address] May, Congestive heart failure, unspecified HF chronicity, unspecified heart failure type I50.9 ; Fatigue, unspecified type R53.83 ; Mixed hyperlipidemia E78.2 and Elevated LFTs R94.5 [place] [address] [place] [id number] [place] [address] 31 Feb, 2018 Colon cancer screening Z12.11 [place] [address] [place] [id number] [place] [address] 18 Feb, 2018 Colon cancer screening Z12.11 [place] [address] [place] [id number] [place] [address] 16 Feb, 2018 Essential hypertension I10 ; Bilateral impacted cerumen H61.23 ; Coronary artery disease involving [place] coronary artery of [place] heart without angina pectoris I25.10 ; Mixed hyperlipidemia E78.2 and Screening for diabetes mellitus Z13.1 [place] [address] [address] Jul, [place] [address] [place] [id number] [place] [address] Jul, [place] [address] [place] [address] Jul, Fatigue, unspecified type R53.83 ; Other emphysema J43.8 ; Essential hypertension I10 and Coronary artery disease involving [place] coronary artery of [place] heart without angina pectoris I25.10 [place] [address] [place] [address] Jan, [place] [address] [place] [id number] [address] Jan, [facility] [address] [address] February, [facility] [address] [address] Dec, [facility] [address] [address] Nov, [facility] [address] [address] Sep, [facility] [address] [address] Oct, [facility] [address] [address] Sep, IMMUNIZATIONS No Known Immunizations SOCIAL HISTORY Never Assessed REASON FOR VISIT referral PLAN OF CARE VITAL SIGNS MEDICATIONS Unknown Medications RESULTS No Results PROCEDURES No Known procedures INSTRUCTIONS MEDICATIONS ADMINISTERED No Known Medications MEDICAL (GENERAL) HISTORY Type Description Date Medical History emphysema Medical History htn Medical History degenerative changes to back Medical History arthritis Medical History COPD Medical History [place] - 2014 Surgical History No know Surgical history Hospitalization History COPD 2014 Hospitalization History COPD, CHF, Liver Enzymes 2018
--- OUTSIDE RECORDS SUMMARY | 2018-12-01 22:13 | XMS REPORT ---
Author Author JO ANN ADAMS Organization [facility] Address [address] [place] [address] Care Team Providers Care Executive Administrative Assistant Name Role Phone ANGIE, JO ANN Unavailable PROBLEMS Type Condition ICD9-CM Code EUI60-QM Code Onset Dates Condition Status SNOMED Code Problem Mixed hyperlipidemia E78.2 Active 060237187 Problem Other emphysema J43.8 Active 71872395 Problem Chronic systolic CHF (congestive heart failure) I50.22 Active 215898267 Problem Essential hypertension I10 Active 95749201 Problem Coronary artery disease involving [place] coronary artery of [place] heart without angina pectoris I25.10 Active [id number] ALLERGIES No Information ENCOUNTERS Encounter Location Date Diagnosis [place] [address] [place] [address] [id number] [place] [address] Jul, [place] [address] [place] [id number] [place] [address] Jun, [place] [address] [place] [id number] [place] [address] Jun, Congestive heart failure, unspecified HF chronicity, unspecified heart failure type I50.9 ; Essential hypertension I10 ; Dyspnea, unspecified type R06.00 and History of tobacco use Z87.891 [place] [address] [place] [id number] [place] [address] Jun, [place] [address] [place] [address] [id number] [place] [address] 16 May, 2018 [place] [address] [address] 14 May, 2018 Congestive heart failure, unspecified HF chronicity, unspecified heart failure type I50.9 ; Fatigue, unspecified type R53.83 ; Mixed hyperlipidemia E78.2 and Elevated LFTs R94.5 [facility] [address] [place] [address] 31 Feb, 2018 Colon cancer screening Z12.11 [facility] [address] [place] [address] [id number] [place] [address] February, Colon cancer screening Z12.11 [facility] [address] [place] [address] [id number] [place] [address] 16 Feb, 2018 Essential hypertension I10 ; Bilateral impacted cerumen H61.23 ; Coronary artery disease involving [place] coronary artery of [place] heart without angina pectoris I25.10 ; Mixed hyperlipidemia E78.2 and Screening for diabetes mellitus Z13.1 [place] [address] [place] [id number] [place] [address] Jul, [place] [address] [place] [id number] [place] [address] Jul, [place] [address] [place] [id number] [place] [address] Jul, Fatigue, unspecified type R53.83 ; Other emphysema J43.8 ; Essential hypertension I10 and Coronary artery disease involving [place] coronary artery of [place] heart without angina pectoris I25.10 [place] [address] [place] [address] Jan, [place] [address] [place] [address] Jan, [facility] [address] [place] [address] [id number] [place] [address] February, [facility] [address] [place] [id number] [place] [address] Dec, [facility] [address] [place] [address] [id number] [place] [address] Nov, [facility] [address] [place] [address] [id number] [place] [address] Sep, [facility] [address] [facility] [id number] [place] [address] Oct, [facility] [address] [facility] [id number] [place] [address] Sep, IMMUNIZATIONS No Known Immunizations SOCIAL HISTORY Never Assessed REASON FOR VISIT [facility] follow up - CHINO Gorman, Echo performed at [facility] in 05/2018 PLAN OF CARE Activity Details Follow Up at Dr Harden Reason: VITAL SIGNS Height 72 in 2018-07-17 Heart Rate 96 bpm 2018-07-17 Respiratory Rate 20 2018-07-17 Blood pressure systolic 120 mmHg 2018-07-17 Blood pressure diastolic 84 mmHg 2018-07-17 MEDICATIONS Medication Instructions Dosage Frequency Start Date End Date Duration Status Lisinopril 10 mg Orally Once a day 2 tablets 24h 12 Jun, 2018 90 days Active Ventolin HFA 108 (90 Base) MCG/ACT Inhalation every 6 hrs 2 puffs as needed 6h Active Lopressor 25 Orally Twice a day 12h Not-Taking Ipratropium-Albuterol 0.5-2.5 (3) MG/3ML Inhalation every 6 hrs 3 ml as needed 6h May, Active Proventil (2.5 MG/3ML) 0.083% Inhalation every 6 hrs 6h Active Potassium Chloride 10 meq Orally Once a day 1 tab 24h 90 days Active Lasix 20 mg Orally Once a day 1 tablet 24h 30 days Active RESULTS Name Result Date Reference Range Lexiscan Stress Nuclear Test 2018-07-20 PROCEDURES No Known procedures INSTRUCTIONS MEDICATIONS ADMINISTERED No Known Medications MEDICAL (GENERAL) HISTORY Type Description Date Medical History emphysema Medical History htn Medical History degenerative changes to back Medical History arthritis Medical History COPD Medical History [place] - 2014 Hospitalization History COPD 2015 Hospitalization History COPD, CHF, Liver Enzymes 2017
--- NOTE | 2018-12-01 22:22 | ED Integumentary General ---
General Chief Complaint: Skin/Wound Problems Stated Complaint: LUMP ON BACK OF NECK Source: patient Exam Limitations: no limitations History of Present Illness Date Seen by Provider: Dec 01, 2018 Time Seen by Provider: 22:18 Initial Comments 58-year-old male who presents to the emergency room with complaints of a lump on the back of his neck. He reports that he noticed this lump 1 hour prior to arrival. He reports pain when he pushes on it. Denies any fevers. Timing/Duration: just prior to arrival Location: scalp Possible Cause: no cause identified Associated Symptoms: denies symptoms Allergies and Home Medications Allergies Coded Allergies: No Allergy Information Available (Unverified , 07/20/18) Home Medications Albuterol Sulfate 2.5 Mg/3 Ml Vial.neb, 2.5 MG IH BID, (Reported) Aspirin 81 Mg Tablet.dr, 81 MG PO DAILY Prescribed by: JO ANN ADAMS on 08/05/18 1001 Atorvastatin Calcium 10 Mg Tablet, 80 MG PO DAILY Prescribed by: JO ANN ADAMS on 08/05/18 100 Furosemide 20 Mg Tablet, 20 MG PO DAILY, (Reported) Losartan Potassium 100 Mg Tablet, 100 MG PO DAILY, (Reported) Metoprolol Succinate 25 Mg Tab.er.24h, 25 MG PO DAILY, (Reported) Potassium Chloride 10 Meq Capsule.er, 10 MEQ PO DAILY, (Reported) Patient Home Medication List Home Medication List Reviewed: Yes Review of Systems Review of Systems Constitutional: no symptoms reported, see HPI Skin: see HPI, lumps (lump on the back of his neck) All Other Systems Reviewed Negative Unless Noted: Yes Past Noosnpm-Zzphdx-Yyedxb Hx Past Med/Social Hx: Reviewed Nursing Past Med/Soc Hx Patient Social History Type Used: Cigarettes Recent Foreign Travel: No Contact w/Someone Who Travel: No Past Medical History COPD Family Medical History Reviewed Nursing Family Hx Physical Exam Vital Signs Capillary Refill : General Appearance: WD/WN, no apparent distress Cardiovascular: normal peripheral pulses, regular rate, rhythm, no edema, no gallop, no JVD, no murmur Respiratory: chest non-tender, lungs clear, normal breath sounds, no respiratory distress, no accessory muscle use Extremities: normal capillary refill Neurologic/Psychiatric: alert, normal mood/affect, oriented x 3 Skin: normal color, warm/dry Skin Problem Location: neck (see images for location) Skin Problem Character: other (sebaceous cyst no erythema noted) Progress/Results/Core Measures Progress Progress Note : Time: 22:20 Progress Note I have seen and evaluated the patient. I've believe his exam findings are consistent with a sebaceous cyst. I've instructed close follow-up with formerly [facility], [facility] should it become infected or if he would like it removed. Return precautions were given. He agrees with plan of care. Initial ECG Intervals: Normal Departure Impression Primary Impression: Sebaceous cyst Disposition: HOME, SELF-CARE Condition: Stable/Unchanged Departure-Patient Inst. Decision time for Depature: 22:21 Referrals: SANDY CHAVEZ MD (PCP/Family) Primary Care Physician Patient Instructions: SEBACEOUS CYST Add. Discharge Instructions: Watch for signs of infection such as increased redness, swelling, pain, drainage. If you should experience these you should have the cyst reexamined. Follow-up with formerly [facility] within 1 week for recheck. Return back to the emergency room for worsening symptoms or concerns as needed. All discharge instructions reviewed with patient and/or family. Voiced understanding. Images Head/Face 1 - Other-See Progress Note Progress Sebaceous cyst TORIN PEREZ Dec 01, 2018 22:22
[2018-12-01 22:36] VITALS: BP 0/0
== END 2018-12-01 22:35 | disposition home or self-care (01) ==
LOC: ER 22:09 → EDUNIT# 22:09 → ER 22:35
DX: L72.3 Sebaceous cyst (principal); J44.9 Chronic obstructive pulmonary disease, unspecified; Z79.51 Long term (current) use of inhaled steroids; Z79.82 Long term (current) use of aspirin
CPT/HCPCS: 99282

== ENCOUNTER → 2019-03-09 | Outpatient (CLI) | payer MEDICAID ==
--- NOTE | 2019-03-09 15:21 | Diagnostic Imaging Report ---
MRI RT UPPER EXT JOINT W/O TECHNIQUE: Multiplanar, multisequence MR imaging of the right shoulder was performed without contrast. COMPARISON: None available. INDICATION: Right shoulder pain with decreased range of motion. FINDINGS: Rotator cuff: Focal intermediate grade partial-thickness tear of the anterior-most insertional fibers of the supraspinatus. This appears to involve the bursal and interstitial fibers. The infraspinatus, teres minor, and subscapularis are intact. No rotator cuff muscle atrophy or edema. Glenoid labrum: Increased signal within the undersurface of the posterior superior labrum may represent a small amount of degenerative tearing. However, there is no displaced labral tear. Long head of biceps: Long head of biceps is normally positioned within the bicipital groove. The intracapsular segment is intact. Bones and cartilage: Humeral head is normal in morphology without fracture or focal osseous lesion. No glenohumeral chondromalacia. Mild degenerative capsular hypertrophy of the acromioclavicular joint. Soft tissues: No glenohumeral joint effusion. Ill-defined thickening of the inferior glenohumeral ligament/capsule. Additionally, there is a small amount of surrounding pericapsular edema at the glenohumeral joint. No fluid or inflammatory like signal within the subacromial/subdeltoid space to indicate bursitis. IMPRESSION: 1. MRI features are suggestive of adhesive capsulitis. Correlation with physical exam is suggested. 2. Low- to intermediate-grade partial-thickness bursal-sided tear of the anterior-most insertional fibers of the supraspinatus. 3. Potential degenerative tearing of the superior labrum. Dictated by: Dictated on workstation # [id number]
== END ==
LOC: RAD 13:51
PROVIDERS: ATTEND Family Medicine
DX: M75.101 Unspecified rotator cuff tear or rupture of right shoulder, not specified as traumatic (principal); S43.491A Other sprain of right shoulder joint, initial encounter
CPT/HCPCS: 73221

== ENCOUNTER → 2019-08-04 | Outpatient (CLI) | payer MEDICAID ==
[~2019-08-04] VITALS: Ht 183 cm; Wt 83.0 kg
[~2019-08-04] MED LIST changes: +CATHETER FLUSH 10 ML SYR IV PRN; +REGADENOSON 0.4 MG/5 ML SYR (LEXISCAN) IV ONE
[2019-08-04 09:06] VITALS: BP 154/99
[2019-08-04 09:14] VITALS: BP 145/84
[2019-08-04 09:16] VITALS: BP 145/84
--- NOTE | 2019-08-05 08:15 | STRESS TEST ---
DATE OF SERVICE: EXERCISE AND LEXISCAN MYOVIEW STRESS TEST REPORT REFERRING PHYSICIAN: Dr. Julissa Carroll, [facility]. Baseline heart rate is 78. Baseline blood pressure 127/91. Baseline EKG is sinus rhythm with no ischemic changes. In summary, the patient was injected with 10.84 mCi of technetium-99 Myoview and the resting images were obtained and the patient started exercising on treadmill was unable to exercise beyond 4 minutes and 40 seconds on standard Trav protocol, achieving 70% of maximum expected heart rate, was unable to exercise any further. Test was terminated and converted to Lexiscan Myoview stress test. He received 0.4 mg of Lexiscan followed by 29.7 mCi of technetium-99 Myoview. Throughout the test, there were no EKG changes. During recovery, heart rate and blood pressure returned to baseline. The resting and stress images were reviewed and compared in the short axis, horizontal long axis, and vertical long axis views. Review of the images showed diaphragmatic attenuation with mild decreased uptake at the mid to apical inferior wall with subtle reversibility. SSS is 3, SDS 2, TID value 0.95. On the gated images, the left ventricle appeared to be dilated with diffuse left ventricular hypokinesia, calculated ejection fraction 33%. CONCLUSION: 1. The patient tolerated Lexiscan well. 2. Diaphragmatic attenuation with mild decreased uptake at the mid to apical inferior wall with subtle reversibility probably due to diaphragmatic attenuation. 3. Dilated left ventricle with diffuse left ventricular hypokinesia with calculated ejection fraction 33%. Job ID: [id number] DocumentID: [id number] Dictated Date: 08/05/2019 06:45:56 Component Engineer Date: 08/05/2019 08:13:49 Dictated By: JO ANN ADAMS MD
== END ==
LOC: CARD 07:24
PROVIDERS: ATTEND Physician Assistant
DX: I25.10 Atherosclerotic heart disease of native coronary artery without angina pectoris (principal); I51.7 Cardiomegaly; I51.89 Other ill-defined heart diseases
CPT/HCPCS: 78452; 93017

== ENCOUNTER 2019-08-25 08:16 | Day surgery (SDC) | payer MEDICAID ==
[2019-08-25] VITALS (11 sets, daily range): BP systolic 111–164; BP diastolic 71–106
[~2019-08-25] VITALS: Ht 182.9 cm; Wt 84.0 kg
[~2019-08-25 08:16] MED LIST changes: -CATHETER FLUSH 10 ML SYR IV PRN; -REGADENOSON 0.4 MG/5 ML SYR (LEXISCAN) IV ONE
[2019-08-25] MEDS ORDERED: LIDOCAINE 1% INJ 20 ML 20 ML VIAL ONE (08:22)
[2019-08-25] MEDS ORDERED: NS IV 1000 ML 1,000 ML ONE (08:22)
[2019-08-25] MEDS ORDERED: HEParin (CATH LAB) 2,000 ML IV ONE (08:22)
[2019-08-25] MEDS ORDERED: NS IV 1000 ML 1,000 ML IV SCH (08:26)
[2019-08-25 08:49] LABS: HEMOGLOBIN 12.7 G/DL (13.3-17.7); MEAN PLATELET VOLUME 9.8 FL (7.4-10.4); RED CELL DISTRIBUTION WIDTH 16.1 % (10.0-14.5)
--- NOTE | 2019-08-25 09:00 | Diagnostic Imaging Report ---
INDICATION: Preop for heart catheterization. Time of exam 8:44 AM Correlation is made with prior chest from 08/05/2018. The heart is enlarged but stable. There are changes of median sternotomy and CABG. Lungs are clear. No infiltrates are seen. No effusion or pneumothorax. IMPRESSION: Status post CABG. No acute features detected. Dictated by: Dictated on workstation # [id number]
[2019-08-25 09:01] LABS: INR 0.9 (0.8-1.4); PROTHROMBIN TIME PATIENT 12.6 SEC (12.2-14.7)
[2019-08-25] MEDS ORDERED: FERR-84 PO (09:07)
[2019-08-25] MEDS ORDERED: ASPI-983 PO (09:07)
[2019-08-25] MEDS ORDERED: ATOR80TA76 PO (09:07)
[2019-08-25] MEDS ORDERED: CLOP75TA69 PO (09:07)
[2019-08-25 09:09] LABS: ALANINE AMINOTRANSFERASE 19 U/L (0-55); ALBUMIN 4.3 GM/DL (3.2-4.5); ALKALINE PHOSPHATASE 122 U/L (40-136); BILIRUBIN,TOTAL 0.4 MG/DL (0.1-1.0); BUN/CREATININE RATIO 21; CALCIUM 9.3 MG/DL (8.5-10.1); CARBON DIOXIDE 24 MMOL/L (21-32); CHLORIDE 106 MMOL/L (98-107); CHOLESTEROL 146 MG/DL (< 200); CREATININE SERUM 1.19 MG/DL (0.60-1.30); GFR ESTIMATED > 60; GLUCOSE 129 MG/DL (70-105); HDL CHOLESTEROL 40 MG/DL (40-60); POTASSIUM 4.2 MMOL/L (3.6-5.0); SODIUM 141 MMOL/L (135-145); TOTAL PROTEIN 7.3 GM/DL (6.4-8.2); TRIGLYCERIDES 138 MG/DL (<150); VLDL CHOLESTEROL 28 MG/DL (5-40)
[2019-08-25] MEDS ORDERED: METO-370 PO (09:13)
[2019-08-25] MEDS ORDERED: ACET325T49 PO (09:13)
[2019-08-25] MEDS ORDERED: IPRA3AMP31 IH (09:13)
[2019-08-25] MEDS ORDERED: RT-ALBUINH IH (09:14)
--- NOTE | 2019-08-25 09:18 | NUR ---
SPOKE WITH PT (HE HAD HIS HOME MEDS) WELL CALLING [facility] TO COMPLETE THE MED REC. PT WAS ABLE TO TELL ME HOW/WHEN HE TAKES ALL HIS MEDS. THE FOLLOWING ARE FILL DATES ACCORDING TO [facility]: 07-29-2019 METOPROLOL #30/30DS 08-17-2019 LOSARTAN #90/90DS 08-23-2019 CLOPIDOGREL #30/30DS 08-23-2019 ATORVASTATIN #90/90DS ALBUTEROL HFA AND DUONEB ARE PRN MEDS OTC MEDS: IRON APAP ASPIRIN 81MG
[2019-08-25] MEDS ORDERED: FLU QUADRIvalent (5+ YOA) 2019-2020 (AFLURIA) 0.5 ML IM ONE (09:30)
[2019-08-25] MEDS ORDERED: fentaNYL INJECTION 100 MCG/2 ML AMP ONE (11:19)
[2019-08-25] MEDS ORDERED: MIDAZOLAM 5 MG/5 ML (VERSED) VIAL ONE (11:19)
[2019-08-25] MEDS ORDERED: HEParin 1000 UNIT/ML (10ML VIAL) FOR BOLUS ONE (11:19)
[2019-08-25] MEDS ORDERED: NITRO DRIP 25000 MCG/D5W 0 ML IV ONE (12:00)
[2019-08-25] MEDS ORDERED: ASPIRIN 325 MG (5 GR) TABLET ONE (12:21)
[2019-08-25] MEDS ORDERED: CLOPIDOGREL 300 MG (PLAVIX) TABLET PO ONE (12:21)
--- NOTE | 2019-08-25 12:22 | Cardiac Procedure Note-CS/ASA ---
Pre-Procedure Note Pre-Op Procedure Note H&P Reviewed The H&P was reviewed, patient examined and no changes noted. Date H&P Reviewed: Aug 25, 2019 Time H&P Reviewed: 11:00 Conscious Sedation Pre-Proced Time 11:00 ASA Score 3 For ASA 3 and 4: Consider anesthesia and medical clearance. Also, for patients with a history of failed moderate sedation consider anesthesia. Airway Lungs Heart ASA score ASA 1: a normal healthy patient ASA 2: a patient with a mild systemic disease (mid diabetes, controlled hypertension, obesity x ASA 3: a patient with a severe systemic disease that limits activity (angina, COPD, prior Myocardial infarction) ASA 4: a patient with an incapacitating disease that is a constant threat to life (CHF, renal failure) ASA 5: a moribund patient not expected to survive 24 hrs. (ruptured aneurysm) ASA 6: a declared brain- patient whose organs are being harvested. For emergent operations, add the letter E after the classification Mallampati Classification Grade 3 Sedation Plan Analgesia, Amnesia, Plan communicated to team members, Discussed options with patient/fam, Discussed risks with patient/fam The patient is an appropriate candidate to undergo the planned procedure, sedation, and anesthesia. The patient immediately re-assessed prior to indication. JO ANN ADAMS MD Aug 25, 2019 12:22 POS
[2019-08-25] MEDS ORDERED: RT-ALBUTEROL/IPRATROPIUM 3 ML (DUONEB) VIAL IH PRN (12:30)
[2019-08-25] MEDS ORDERED: RT-ALBUTEROL SULF 2.5 MG/3 ML PRE-MIX VIAL IH PRN (12:30)
[2019-08-25] MEDS ORDERED: PATIENT MAY USE OWN MEDS, ALL PO SCH (12:30)
--- NOTE | 2019-08-25 12:31 | Cardiac Cath Report ---
Cardiac Cath Report Physician (s)/Butter Melter (s) Physician JO ANN ADAMS MD Pre-Procedure Diagnosis Pre-Procedure Diagnosis: coronary artery disease, congestive heart failure Post-Procedure Note Procedure Start Date: Aug 25, 2019 Name of Procedure: Left heart catheterization Left ventriculogram Vein graft angiogram GUIDO angiogram Stent to the vein graft to the right coronary artery Findings/Procedure Note PROCEDURE NOTE: 59-year-old gentleman with history of coronary artery disease had recent CABG, had significant deterioration the left ventricular function in addition had an abnormal stress test. Scheduled for cardiac catheterization possible PTCA After explaining the procedure to the patient, all pros and cons were explained, all questions were answered. The patient signed the consent and then he was placed on the cardiac catheterization laboratory. Groin was prepped SL fashion local anesthesia was used. Sheath placed in the right femoral artery. Barbara right and left catheter were used to access the coronary system.Vein Graft evaluated. GUIDO evaluated. Pigtail was used to access the left ventricular cavity. Patient has severe stenosis in the discharge vein graft to the right coronary artery, 6000 units of heparin were given then a trial guide was advanced and left carotid system, BMW wire was advanced and parked distally, 3.0 x15 mm balloon was done then deployment of Mirian 3.5 x 18 millimeter expanded to 3.7 mm with excellent results and excellent flow post intervention. The same guide was used to access the vein graft to the obtuse marginal branch. Left ventriculogram was done At the end of the procedure the sheath was removed. Closure device was used FINDINGS: Hemodynamics LV 146/8, end-diastolic pressure of 8 Aorta 150-50/72 mean of 96 ANATOMY: Left Main has moderate disease Left Anterior Descending has moderate severe disease, GUIDO to LAD is very small artery with good flow to the distal LAD Left Circumflex has severe disease proximally, occluded obtuse marginal branch, the vein graft jump graft to OM1 and OM 2 is patent with excellent flow distally Right Coronory Artery is occluded proximally the vein graft to the right coronary artery has severe stenosis successful stenting using Mirian 3.5 x 18 mm expanded to 3.8 mm with excellent results GUIDO to LAD is patent, very small artery with good flow in the distal LAD Vein Graft evaluation showed column Vein graft to the right coronary artery has severe stenosis distally successful stenting using Mirian 3.5 x 18 mm expanded to 3.8 mm with excellent results Vein graft/jump graft to OM1 and OM 2 is patent with good flow distally LV Gram is dilated with diffuse left ventricular hypokinesia estimated ejection fraction 35 percent CONCLUSION: 1. Severe stenosis in the vein graft to the right coronary artery successful stenting using Mirian 3.5 x 18 mm expanded to 3.8 mm with excellent results. 2. Small GUIDO to LAD attached to the distal LAD with good flow. 3. Patent vein graft/jump graft to OM1 and OM 2 with small vessel disease distally 4. Dilated left ventricle with diffuse left ventricular hypokinesia estimated ejection fraction 35 percent DISCUSSION AND RECOMMENDATION: Anesthesia Type: Conscious Sedation Estimated blood loss (mL): 25 ml Contrast Amount: 115 ml Total Radiation Dose: 973 mGy Post-Procedure Diagnosis Post-operative diagnosis: Chest pain Coronary artery disease Congestive heart failure, chronic compensated left ventricular systolic dysfunction, ischemic cardiomyopathy Hypertension Hyperlipidemia JO ANN ADAMS MD Aug 25, 2019 12:31 POS
--- NOTE | 2019-08-25 12:45 | NUR ---
PT TO ROOM VIA BED ACCOMPANIED BY [employer] VESSEL STAFF. REPORT RECEIVED FROM MECCA SARMIENTO. PT INTRODUCED TO SURROUNDINGS AND INFORMED OF PLAN OF CARE. PT ALERT AND ORIENTED AND ON ROOM AIR. PT RIGHT GROIN SITE CHECKED, SITE SOFT, DRSG DRY AND INTACT. CALL LIGHT WITHIN REACH OF PT. WILL CONTINUE TO MONITOR.
[2019-08-25] MEDS: NS IV 1000 ML 1,000 ML IV SCH ×2 (13:03→22:45)
[2019-08-25] MEDS: ACETAMINOPHEN 325 MG TABLET PO PRN ×2 (13:07→20:22)
[2019-08-25] MEDS ORDERED: meTOproloL SUCCINATE 50 MG (TOPROL XL) TAB PO SCH (18:00)
[2019-08-25] MEDS ORDERED: LOSARTAN 100 MG (COZAAR) TABLET PO SCH (18:00)
[2019-08-25] MEDS ORDERED: FERROUS SULF 325 MG (IRON) TAB PO SCH (18:00)
[2019-08-25] MEDS ORDERED: diphenhydrAMINE 25 MG TAB (BENADRYL) PO ONE (20:18)
[2019-08-25] MEDS ORDERED: diphenhydrAMINE 25 MG TAB (BENADRYL) PO NR (20:30)
[2019-08-26 00:11] VITALS: BP 133/79
[2019-08-26 04:45] VITALS: BP 109/73
[2019-08-26 05:30] LABS: HEMOGLOBIN 11.8 G/DL (13.3-17.7); MEAN PLATELET VOLUME 10.4 FL (7.4-10.4); RED CELL DISTRIBUTION WIDTH 15.8 % (10.0-14.5); WHITE BLOOD COUNT 9.6 10^3/uL (4.3-11.0)
[2019-08-26 06:21] LABS: BUN/CREATININE RATIO 20; CALCIUM 8.8 MG/DL (8.5-10.1); CARBON DIOXIDE 23 MMOL/L (21-32); CHLORIDE 107 MMOL/L (98-107); CREATININE SERUM 1.17 MG/DL (0.60-1.30); GFR ESTIMATED > 60; GLUCOSE 122 MG/DL (70-105); POTASSIUM 4.5 MMOL/L (3.6-5.0); SODIUM 140 MMOL/L (135-145)
--- NOTE | 2019-08-26 07:33 | Cardiology Progress Note ---
Subjective Date Seen by Provider: Aug 26, 2019 Time Seen by Provider: 07:33 Subjective/Events-last exam Patient is laying down in bed, feeling well, groin is healing well Review of Systems General: No Chills, No Night Sweats, No Fatigue, No Malaise, No Appetite, No Other HEENT: No Head Aches, No Visual Changes, No Eye Pain, No Ear Pain, No Dysphasia, No Sinus Congestion, No Post Nasal Drip, No Sore Throat, No Other Pulmonary: No Dyspnea, No Cough, No Pleuritic Chest Pain, No Other Cardiovascular: No: Chest Pain, Palpitations, Orthopnea, Paroxysmal Noc. Dyspnea, Edema, Lt Headedness, Other Objective-Cardiology Exam Last Set of Vital Signs Vital Signs 08/26/19 04:45 Temp 36.5 Pulse 65 Resp 20 B/P (MAP) 109/73 (85) Pulse Ox 95 O2 Delivery Room Air Capillary Refill : Less Than 3 Seconds I&O Intake and Output 08/26/19 00:00 Intake Total 300 ml Output Total 250 ml Balance 50 ml Intake Oral 300 ml Output Urine Total 250 ml Results Lab Laboratory Tests 08/25/19 08:44 08/26/19 04:40 A/P-Cardiology Admission Diagnosis Coronary artery disease Congestive heart failure Hypertension Hyperlipidemia Assessment/Plan Coronary artery disease, history of CABG, status post stenting to the vein graft 1. Severe stenosis in the vein graft to the right coronary artery successful stenting using Mirian 3.5 x 18 mm expanded to 3.8 mm with excellent results. 2. Small GUIDO to LAD attached to the distal LAD with good flow. 3. Patent vein graft/jump graft to OM1 and OM 2 with small vessel disease distally 4. Dilated left ventricle with diffuse left ventricular hypokinesia estimated ejection fraction 35 percent Chest pain, reporting improvement. Continue to monitor Hypertension, continue current medication monitor Hyperlipidemia, continue to monitor Congestive heart failure, chronic compensated left ventricular systolic dys function, ischemic cardiomyopathy. JO ANN ADAMS MD Aug 26, 2019 07:33 POS
--- NOTE | 2019-08-26 07:34 | Discharge Inst-Post CATH ---
Discharge Inst-CATH/EP Problems Reviewed?: Yes Post Cardiac Cath/EP D/C Inst Follow Up/Plan Appointment with Dr. Olvera's office in 2-4 weeks <b>CARDIAC CATH/EP PROCEDURE DISCHARGE INSTRUCTIONS</b> ACTIVITY * Go Home directly and rest. * Limit activity of the leg (or wrist if it was used) for 7 days including aerobics, swimming, jogging, bicycling, etc. * Restrict stair-climbing for 7 days if possible, if not, climb up with your non-cath leg, then bring together on the same step. * Avoid lifting, pushing, pulling or excessive movement of the affected extremity for 7 days. * Customary sexual activity may be resumed after 2 days-use caution not to use a position that strains or causes pain to the affected extremity. * No driving for 24 hours. * NO SMOKING. * Avoid straining for bowel movements for 7 days. * Gentle walking on level ground is allowed. * Returning to work will depend on the type of procedure and the results. Your doctor will discuss this with you. CALL YOUR DOCTOR FOR ANY OF THE FOLLOWING: *If bleeding from the puncture site occurs- Apply gentle pressure to site with clean cloth and call your doctor or EMS. * If a knot or lump forms under the skin, increases in size, or causes pain. * If bruising appears to be worsening or moving further down your leg instead of disappearing. * Temperature above 101 F. CARE OF YOUR GROIN INCISION; * Bruising or purple discoloration of the skin near the puncture site is common. * You may shower only, no bathtub bathing for 5 days. Be careful to avoid slipping as your leg may feel stiff. * If a closure device was used on your femoral artery, please see the attached guide regarding care of the device and your leg. * Leave dressing on FOR 24 hours. CARE OF YOUR WRIST INCISION; * Bruising or purple discoloration of the skin near the puncture site is common. * You may shower. * DO NOT submerge wrist. * Leave dressing on FOR 24 hours. JO ANN OLVERA MD Aug 26, 2019 07:34 POS
[2019-08-26 07:45] VITALS: BP 94/63
[2019-08-26] MEDS ORDERED: CLOPIDOGREL 75 MG (PLAVIX) TABLET PO SCH (09:00)
[2019-08-26] MEDS ORDERED: ASPIRIN E.C. 81 MG (ECOTRIN) TAB PO SCH (09:00)
== END 2019-08-26 08:00 | disposition home or self-care (01) ==
LOC: CATH 08:16 → CSD 12:51 → CATH 08-26 08:00
PROVIDERS: ATTEND Internal Medicine Cardiovascular Disease
DX: I25.10 Atherosclerotic heart disease of native coronary artery without angina pectoris (principal); I43 Cardiomyopathy in diseases classified elsewhere; I11.0 Hypertensive heart disease with heart failure; I50.9 Heart failure, unspecified; I65.29 Occlusion and stenosis of unspecified carotid artery; E78.5 Hyperlipidemia, unspecified; F17.210 Nicotine dependence, cigarettes, uncomplicated; Z95.1 Presence of aortocoronary bypass graft; Z79.899 Other long term (current) drug therapy; Z79.02 Long term (current) use of antithrombotics/antiplatelets; Z79.82 Long term (current) use of aspirin
CPT/HCPCS: 36415; 71045; 80048; 80053; 80061; 85027; 85610; 85730; 87081; 93005; 93459

== ENCOUNTER 2021-05-28 05:42 | Outpatient (CLI) | payer MEDICAID, MEDICARE ==
[~2021-05-28] VITALS: Ht 182.9 cm; Wt 82.5 kg
[~2021-05-28 05:42] MED LIST changes: +ACET325T49 PO; +ASPI-1238 PO; -ASPI-983 PO; +ATOR80TA76 PO; +CLOP75TA69 PO; +FERR-84 PO; +IPRA3AMP31 IH; -METO-387 PO; +METO50TA7 PO; +MTP25TSR PO; +RT-ALBUINH IH
[2021-05-28] MEDS ORDERED: VALS160T29 PO (14:58)
== END 2021-05-28 15:45 | disposition home or self-care (01) ==
LOC: PREOP 05:42
PROVIDERS: ATTEND Surgery
DX: Z01.818 Encounter for other preprocedural examination (principal)